=== PATIENT | female | born 1945 | race Caucasian/White ===

== ENCOUNTER 2022-09-27 13:45 | Outpatient (CLI) | payer MEDICARE, BC | END 2022-09-27 13:46 | disposition home or self-care (01) | LOC: ULT 13:45 | PROVIDERS: ATTEND Urology | DX: N39.46 Mixed incontinence (principal); R35.0 Frequency of micturition; N81.6 Rectocele; R10.2 Pelvic and perineal pain; N28.1 Cyst of kidney, acquired; N28.89 Other specified disorders of kidney and ureter | CPT/HCPCS: 76770 ==